=== PATIENT | male | born 1955 | race Caucasian/White ===

== ENCOUNTER 2021-08-28 14:56 | Emergency (ER) | payer OTHER, MEDICAID ==
[~2021-08-28] VITALS: Ht 170.2 cm; Wt 73.6 kg
[2021-08-28 17:55] LABS: COVID AG,FIA SOURCE NASOPHARYNGEAL
[2021-08-28 18:40] LABS: INFLUENZA TYPE A NEGATIVE FOR TYPE A (NEGATIVE); INFLUENZA TYPE B NEGATIVE FOR TYPE B (NEGATIVE)
[2021-08-28 19:03] VITALS: BP 166/88
== END 2021-08-28 19:30 | disposition home or self-care (01) ==
LOC: EMS 14:56
DX: U07.1 COVID-19 (principal)
CPT/HCPCS: 71045; 87804; 99284